=== PATIENT | female | born 1935 | race African-American/Black ===

== ENCOUNTER 2018-12-02 08:55 | Emergency (ER) | payer MEDICARE ==
[~2018-12-02] VITALS: Ht 154.9 cm; Wt 76.9 kg
[~2018-12-02 08:55] MED LIST: ATOR10TA PO; CITA-311 PO; LOSA25TA96 PO; NAPR220T67 PO
[2018-12-02 08:59] VITALS: BP 148/72
== END 2018-12-02 09:58 | disposition home or self-care (01) ==
LOC: ER 08:56
DX: S93.402A Sprain of unspecified ligament of left ankle, initial encounter (principal); I10 Essential (primary) hypertension; Z90.710 Acquired absence of both cervix and uterus; Z88.8 Allergy status to other drugs, medicaments and biological substances; Z79.899 Other long term (current) drug therapy; Z60.2 Problems related to living alone; W01.0XXA Fall on same level from slipping, tripping and stumbling without subsequent striking against object, initial encounter; Y93.89 Activity, other specified; Y92.096 Garden or yard of other non-institutional residence as the place of occurrence of the external cause; Y99.8 Other external cause status
CPT/HCPCS: 73610; 99284

== ENCOUNTER 2020-09-13 10:45 | Emergency (ER) | payer MEDICARE ==
[~2020-09-13] VITALS: Ht 166.4 cm; Wt 78.7 kg
[2020-09-13 10:54] VITALS: BP 160/71
[2020-09-13] MEDS ORDERED: ketorolac trometh. 30mg/ml inj. IM ONE (12:35)
== END 2020-09-13 13:12 | disposition home or self-care (01) ==
LOC: ER 10:46
DX: M54.5 Low back pain (principal); I10 Essential (primary) hypertension; M19.90 Unspecified osteoarthritis, unspecified site; Z90.710 Acquired absence of both cervix and uterus; Z72.89 Other problems related to lifestyle; Z88.8 Allergy status to other drugs, medicaments and biological substances; Z79.899 Other long term (current) drug therapy
CPT/HCPCS: 73502; 96372; 99283; J1885

== ENCOUNTER 2022-09-14 13:41 | Emergency (ER) | payer MEDICARE ==
[~2022-09-14] VITALS: Ht 165.1 cm; Wt 65.9 kg
[2022-09-14 13:53] VITALS: BP 163/78
== END 2022-09-14 20:37 | disposition left against medical advice (07) ==
LOC: ER 13:42
DX: R26.2 Difficulty in walking, not elsewhere classified (principal); Z53.21 Procedure and treatment not carried out due to patient leaving prior to being seen by health care provider

== ENCOUNTER 2024-08-04 15:33 | Emergency (ER) | payer MEDICARE, OTHER ==
[~2024-08-04] VITALS: Ht 165.1 cm; Wt 68.0 kg
[~2024-08-04 15:33] MED LIST changes: +ASPI-1071 PO; +LOSA-415 PO; -LOSA25TA96 PO; -NAPR220T67 PO
[2024-08-04 15:57] VITALS: TEMP 97.9
[2024-08-04] MEDS: HYDROcodone/acetaminophen 5mg/325mg tablet PO ONE (16:44)
[2024-08-04 17:17] VITALS: BP 165/69; PULSE 60; RESP 16; O2SAT 99
[2024-08-04] MEDS ORDERED: CYCL-394 PO (17:23)
[2024-08-04] MEDS ORDERED: HYDR-3965 PO (17:23)
== END 2024-08-04 18:41 | disposition home or self-care (01) ==
LOC: ER 15:33
DX: M25.552 Pain in left hip (principal); M54.59 Other low back pain; I10 Essential (primary) hypertension; M19.90 Unspecified osteoarthritis, unspecified site; G89.29 Other chronic pain; Z90.710 Acquired absence of both cervix and uterus; Z72.89 Other problems related to lifestyle; Z60.2 Problems related to living alone; Z88.8 Allergy status to other drugs, medicaments and biological substances; Z79.82 Long term (current) use of aspirin; Z79.899 Other long term (current) drug therapy
CPT/HCPCS: 72131; 73700; 99284